=== PATIENT | male | born 1990 | race Caucasian/White ===

== ENCOUNTER 2022-11-08 12:50 | Inpatient (IN) ==
--- NOTE | 2022-11-08 13:29 | Emergency Department Note ---
Abdominal Pain HPI General Chief Complaint: Abdominal Pain Stated Complaint: Colitis Time Seen by Provider: 11/08/22 12:54 Source: patient Mode of arrival: ambulatory Limitations: no limitations History of Present Illness HPI Narrative: Narrative: Patient presents to the ED after being sent over from [facility] due to concerns about a GI bleed. Apparently patient states that he has been having diarrhea x5 days. He states the diarrhea has gotten progressively worse. He states now over the last 3 days he has been having more more blood in his stool as well. He states that he went over the [facility] where CT was performed and this showed that he had colitis. He continued to have blood which is why he went to the [facility]. [facility] spoke to the GI provider who want him sent to the ED for further evaluation. Patient denies fever, chills, nausea, vomiting, hematemesis, abdominal trauma, dysuria, hematuria, urinary frequency, cardiac chest pain, heart palpitation, shortness of breath. He reports that he is having some mild abdominal pain about a 4/5 distal described as a dull ache. Patient denies any other alleviating or aggravating factors. Related Data Home Medications Medication Instructions Recorded Confirmed ciprofloxacin HCl 500 mg tablet 500 mg PO Q12H 11/08/22 11/08/22 Allergies Allergy/AdvReac Type Severity Reaction Status Date / Time No Known Drug Allergies Allergy Verified 11/08/22 11:30 Review of Systems ROS ROS Narrative: Narrative: All systems ED: reviewed and negative except as stated. PFS Narrative Patient History Narrative: Narrative: Medical/Surgical/Family History All Active Problems (Updated 11/08/22 @ 15:09 by Maurice Lynne DO) Colitis (Acute) Acute GI bleeding (Acute) Sore throat (Acute) Upper respiratory infection (Acute) Social History Smoking Status: Never smoker Alcohol Intake Frequency: holiday/special occasion only Substance Use: does not use Exam Narrative Narrative: Narrative: General Limitations: no limitations General appearance: Absent in distress ENT ENT: Present normal oropharynx and mucous membranes moist Neck Neck: Present normal inspection; Absent meningismus Respiratory Respiratory: Present normal lung sounds bilaterally; Absent respiratory distress Cardiovascular Cardiovascular: Present regular rate and normal rhythm Adbominal Abdominal: Present soft and normal bowel sounds; Absent tenderness Rectal Rectal: Present heme (+) stool Extremities Extremities: Present normal inspection and normal capillary refill Back Back: Absent CVA tenderness (R) or CVA tenderness (L) Neurological Neurological: Present oriented X3 and normal gait Psychiatric Psychiatric: Present normal affect and normal mood Skin Skin: Present warm (WNL) and intact Course Course Course Narrative: Patient was evaluated for abdominal pain suspected GI bleed. I received his records from [facility] from a visit that he had on 11/04/2022. I reviewed all labs which show that patient did have leukocytosis at this time with elevated white cell count of 12.4. Other labs were relatively unremarkable to include normal renal function. Patient hemoglobin level stable at that time 14.5. CT of the abdomen pelvis was obtained there and I examined the report which did reveal pancolitis with no obvious perforation or other intra-abdominal abnormalities. Labs were obtained and patient hemoglobin was stable but his white cell count was elevated with leukocytosis. Patient was afebrile with a normal heart rate normal pulse rate so he does not meet sepsis criteria. Lactic acid was within normal limits. pH was within normal limits. Stool sample was obtained and was positive for blood. C. difficile and stool culture still pending. Patient CRP is elevated. Case was discussed with GI specialist, Dr. Menjivar who requested patient be admitted to the hospitalist service with a GI consult. He request that patient be given prednisone 80 mg IV now then 20 mg every 8 hours IV. He request patient be placed on a clear liquid diet. Case was discussed with hospitalist, Dr. Busby, who was agreed to admit the patient. Plan of care was discussed with patient he expressed verbal understanding agreement of plan. Reevaluation(s) Reevaluation #1: Case discussed with hospitalist who has agreed to admit the patient Time: 13:56 Consultations Consultation #1: Case discussed with GI physician, Dr. Menjivar, who request that patient be admitted to the hospitalist service with GI consult. He requested patient be given Solu-Medrol 80 mg IV now in the ED and then 20 mg every 8 hours thereafter. Request that patient also be left on a clear liquid diet. Time: 15:02 Consultation #2: Case discussed with hospitalist Dr. Busby, who was agreed to admit the patient Time: 16:01 Vital Signs Vital signs: Vital Signs Temperature 97.1 F 11/08/22 12:58 Pulse Rate 90 11/08/22 12:58 Respiratory Rate 18 11/08/22 12:58 Blood Pressure 126/85 11/08/22 12:58 Pulse Oximetry (%) 97 11/08/22 12:58 Oxygen Delivery Method Room Air 11/08/22 12:58 Temperature 97.1 F 11/08/22 12:58 Pulse Rate 90 11/08/22 12:58 Respiratory Rate 18 11/08/22 12:58 Blood Pressure 126/85 11/08/22 12:58 Pulse Oximetry (%) 97 11/08/22 12:58 Oxygen Delivery Method Room Air 11/08/22 12:58 MDM MDM Narrative Medical decision making narrative: Narrative: Differential Diagnosis Differential Diagnosis: GI bleed, colitis Medical Records Medical records reviewed: Yes I reviewed the patient's medical records. Lab Data Lab results reviewed: Yes I reviewed the patient's lab results. 11/08/22 13:25 Labs: Lab Results 11/08/22 11/08/22 11/08/22 Range/Units 13:25 13:25 13:30 WBC 15.4 H (4.5-11.0) K/mcL RBC 4.91 (4.63-6.08) M/mcL Hgb 14.2 (13.7-17.5) g/dL Hct 41.9 (40.1-51.0) % POC Hct (41-55) MCV 85.3 (80.0-100.0) fL MCH 28.9 (26.0-34.0) pg MCHC 33.9 (31.0-36.0) g/dL RDW 12.5 (11.5-14.5) % Plt Count 374 (140-440) K/mcL MPV 9.0 (8.8-12.5) fL Immature Gran % (Auto) 4.3 H (0.0-0.5) % Neut % (Auto) 74.0 (38.0-78.0) % Lymph % (Auto) 7.8 L (15.5-49.0) % [place] % (Auto) 8.4 (1.0-12.0) % Eos % (Auto) 4.5 (0.0-7.0) % Baso % (Auto) 1.0 (0.0-2.0) % Lymph # (Auto) 1.20 L (1.50-4.80) K/mcL [place] # (Auto) 1.29 H (0.10-0.90) K/mcL Eos # (Auto) 0.69 (0.00-0.70) K/mcL Baso # (Auto) 0.15 (0.00-0.30) K/mcL Immature Gran # 0.66 H (0.00-0.05) K/mcl Absolute Neutrophils 11.38 H (1.80-8.00) K/mcL ESR 68 H (0-15) mm/hr POC VBG pH 7.38 (7.32-7.42) POC VBG pCO2 at Temp 43.8 (41-51) POC VBG pO2 18 L (25-40) POC VBG HCO3 25.9 (24-28) POC VBG Total CO2 27.0 (25-29) POC Venous O2 Sat 27.0 L (40-70) POC VBG Base Excess 1.0 (-2-2) VBG Lactic Acid 0.9 (0.5-2) POC Sodium (133-145) POC Potassium (3.3-5.1) POC Chloride (96-108) POC Total CO2 (22-30) POC BUN (6-20) POC Creatinine (0.6-1.2) POC Glucose (70-105) POC WB Ioniz Calcium (1.16-1.32) Total Bilirubin 0.3 (0.1-1.0) mg/dL Direct Bilirubin < 0.2 (0-0.3) mg/dL AST 21 (<40) U/L ALT 20 (<40) U/L Alkaline Phosphatase 95 (39-117) U/L Total Protein 6.9 (5.9-8.4) gm/dL Albumin 3.4 (3.2-5.2) gm/dL Globulin 3.5 (2.2-3.7) gm/dL 11/08/22 Range/Units 13:31 WBC (4.5-11.0) K/mcL RBC (4.63-6.08) M/mcL Hgb (13.7-17.5) g/dL Hct (40.1-51.0) % POC Hct 43.0 (41-55) MCV (80.0-100.0) fL MCH (26.0-34.0) pg MCHC (31.0-36.0) g/dL RDW (11.5-14.5) % Plt Count (140-440) K/mcL MPV (8.8-12.5) fL Immature Gran % (Auto) (0.0-0.5) % Neut % (Auto) (38.0-78.0) % Lymph % (Auto) (15.5-49.0) % [place] % (Auto) (1.0-12.0) % Eos % (Auto) (0.0-7.0) % Baso % (Auto) (0.0-2.0) % Lymph # (Auto) (1.50-4.80) K/mcL [place] # (Auto) (0.10-0.90) K/mcL Eos # (Auto) (0.00-0.70) K/mcL Baso # (Auto) (0.00-0.30) K/mcL Immature Gran # (0.00-0.05) K/mcl Absolute Neutrophils (1.80-8.00) K/mcL ESR (0-15) mm/hr POC VBG pH (7.32-7.42) POC VBG pCO2 at Temp (41-51) POC VBG pO2 (25-40) POC VBG HCO3 (24-28) POC VBG Total CO2 (25-29) POC Venous O2 Sat (40-70) POC VBG Base Excess (-2-2) VBG Lactic Acid (0.5-2) POC Sodium 133 (133-145) POC Potassium 3.5 (3.3-5.1) POC Chloride 97 (96-108) POC Total CO2 26.0 (22-30) POC BUN 5 L (6-20) POC Creatinine 1.0 (0.6-1.2) POC Glucose 108 H (70-105) POC WB Ioniz Calcium 0.98 L (1.16-1.32) Total Bilirubin (0.1-1.0) mg/dL Direct Bilirubin (0-0.3) mg/dL AST (<40) U/L ALT (<40) U/L Alkaline Phosphatase (39-117) U/L Total Protein (5.9-8.4) gm/dL Albumin (3.2-5.2) gm/dL Globulin (2.2-3.7) gm/dL Core Measures AMI Core Measures Followed: Yes Discharge Plan Patient/Caregiver Discharge Instructions Pt seen by MONOTYPE CASTER/PA only: No Clinical Impression: Colitis, Acute GI bleeding Patient Disposition: Xfer As Outpt/Obs ([facility]) Condition: Good Follow up with: Joel De La Torre DO [Primary Care Provider] - Prescriptions: No Action ciprofloxacin HCl 500 mg tablet 500 mg PO Q12H
[2022-11-08 13:33] LABS: POC Calcium, Ionized 0.98 (1.16-1.32); POC Potassium 3.5 (3.3-5.1)
[2022-11-08 14:14] LABS: Basophils # (Auto) 0.15 K/mcL (0.00-0.30); Eosinophils # (Auto) 0.69 K/mcL (0.00-0.70); Eosinophils % (Auto) 4.5 % (0.0-7.0); Hematocrit 41.9 % (40.1-51.0); Hemoglobin 14.2 g/dL (13.7-17.5); Lymphocytes % (Auto) 7.8 % (15.5-49.0); Mean Cell Volume 85.3 fL (80.0-100.0); Mean Corpuscular HGB Conc 33.9 g/dL (31.0-36.0); Monocytes # (Auto) 1.29 K/mcL (0.10-0.90); Monocytes % (Auto) 8.4 % (1.0-12.0); Platelet Count 374 K/mcL (140-440); RBC 4.91 M/mcL (4.63-6.08); Red Cell Distribution Width 12.5 % (11.5-14.5); WBC 15.4 K/mcL (4.5-11.0)
[2022-11-08] MEDS ORDERED: methylPREDNISolone SOD SUCC 125 MG/2 ML VIAL IV ONE (15:06)
[2022-11-08 15:15] LABS: Erythrocyte Sedimentation Rate 68 mm/hr (0-15)
[2022-11-08 15:17] LABS: ALT/SGPT 20 U/L (<40); AST/SGOT 21 U/L (<40); Albumin 3.4 gm/dL (3.2-5.2); Alkaline Phosphatase 95 U/L (39-117); Bilirubin,Direct < 0.2 mg/dL (0-0.3); Bilirubin,Total 0.3 mg/dL (0.1-1.0); Globulin 3.5 gm/dL (2.2-3.7)
--- NOTE | 2022-11-08 16:17 | Internal Med History&Physical ---
HPI History of Present Illness Patient information: Note initiated : 11/08/22 at 4:14 pm Service Date, if different from initiated Date: [] Patient: Ronnie Mijares a 31 y/o M admitted on for Colitis. Chief Complaint: [] History of present illness: Mr. Mijares is a 31 year old M For abdominal pain and bright red blood per rectum. Patient states about a week and a half ago he started having abdominal pain especially in the lower quadrants that was severely achy wax and wane. Is also accompanied by diarrhea nonbloody at that time. He went to [facility] urgent care and was given a ciprofloxacin and Lomotil. His symptoms continue to worsen and he went to [facility] on Sunday and got a CT scan which showed severe colitis and was recommended for him to follow-up with GI for colonoscopy. His pain and diarrhea have continued to worsen and he developed nausea vomiting over the weekend. In his bleeding became worse thus came to minor care today discussed case with Dr. Menjivar quested patient to go to the ER and be admitted. Dr. Menjivar feels that this is ulcerative colitis and recommended Solu-Medrol and Dr. Menjivar will perform colonoscopy in the morning. patient does have a leukocytosis on labs. 15,000 and a ESR of 68, CRP of 17 . Patient has a mother and grandmother both with Crohn's disease. I was told C. difficile was negative. Review of Systems: Pertinent positives as above. denies headache/fever/chills/nausea/ vomiting/chest or abdominal pain/cough/dyspnea/diarrhea. Remaining 10 point review of system reviewed negative PHYSICAL EXAM General: Alert, Awake, No acute Distress Eyes/N/T: EOMI, no scleral icterus, PERRL, Head/Neck: neck supple, full ROM, normocephalic atraumatic CV: RRR, No murmurs, normal s1/s2 Pulm: Clear b/l, no wheezing/rhonchi/rales, no respiratory distress Abd: soft, mildly tender Lower Quads, +BS x4 Ext: no clubbing/cyanosis/edema, nontender Neuro: Alert, no focal deficits, moves all extremities, CN 2-12 grossly intact, sensations intact b/l upper/lower Psychiatric: Skin: warm/dry, normal color PFSH PFSH All Active Problems (Updated 11/08/22 @ 15:09 by Maurice Lynne DO) Colitis (Acute) Acute GI bleeding (Acute) Sore throat (Acute) Upper respiratory infection (Acute) Social History smoking status: Never smoker alcohol intake frequency: holiday/special occasion only substance use type: does not use MEDS/ALLERGIES Home Medications and Allergies Home Medications Medication Instructions Recorded Confirmed Type ciprofloxacin HCl 500 mg tablet 500 mg PO Q12H 11/08/22 11/08/22 History Allergies Allergy/AdvReac Type Severity Reaction Status Date / Time No Known Drug Allergies Allergy Verified 11/08/22 11:30 EXAM Constitutional Vitals: Temp Pulse Resp BP Pulse Ox O2 Del Method 97.1 F 90 18 126/85 97 Room Air 11/08/22 12:58 11/08/22 12:58 11/08/22 12:58 11/08/22 12:58 11/08/22 12:58 11/08/22 12:58 DATA Data Completed and Pending Labs: Labs from last 24 hours 11/08/22 11/08/22 11/08/22 13:31 13:30 13:25 WBC RBC Hgb Hct POC Hct 43.0 MCV MCH MCHC RDW Plt Count MPV Immature Gran % (Auto) Neut % (Auto) Lymph % (Auto) [place] % (Auto) Eos % (Auto) Baso % (Auto) Lymph # (Auto) [place] # (Auto) Eos # (Auto) Baso # (Auto) Immature Gran # Absolute Neutrophils ESR POC VBG pH 7.38 POC VBG pCO2 at Temp 43.8 POC VBG pO2 18 L POC VBG HCO3 25.9 POC VBG Total CO2 27.0 POC Venous O2 Sat 27.0 L POC VBG Base Excess 1.0 VBG Lactic Acid 0.9 POC Sodium 133 POC Potassium 3.5 POC Chloride 97 POC Total CO2 26.0 POC BUN 5 L POC Creatinine 1.0 POC Glucose 108 H POC WB Ioniz Calcium 0.98 L Total Bilirubin 0.3 Direct Bilirubin < 0.2 AST 21 ALT 20 Alkaline Phosphatase 95 Total Protein 6.9 Albumin 3.4 Globulin 3.5 11/08/22 13:25 WBC 15.4 H RBC 4.91 Hgb 14.2 Hct 41.9 POC Hct MCV 85.3 MCH 28.9 MCHC 33.9 RDW 12.5 Plt Count 374 MPV 9.0 Immature Gran % (Auto) 4.3 H Neut % (Auto) 74.0 Lymph % (Auto) 7.8 L [place] % (Auto) 8.4 Eos % (Auto) 4.5 Baso % (Auto) 1.0 Lymph # (Auto) 1.20 L [place] # (Auto) 1.29 H Eos # (Auto) 0.69 Baso # (Auto) 0.15 Immature Gran # 0.66 H Absolute Neutrophils 11.38 H ESR 68 H POC VBG pH POC VBG pCO2 at Temp POC VBG pO2 POC VBG HCO3 POC VBG Total CO2 POC Venous O2 Sat POC VBG Base Excess VBG Lactic Acid POC Sodium POC Potassium POC Chloride POC Total CO2 POC BUN POC Creatinine POC Glucose POC WB Ioniz Calcium Total Bilirubin Direct Bilirubin AST ALT Alkaline Phosphatase Total Protein Albumin Globulin A/P Narrative A/P Narrative: A: *Abdominal pain w/bloody diarrhea: 2/2 likely acute severe IBD -CT w/pancolitis -family h/o crohns -symptoms continued to worsen while on abx -c. diff neg *Suspected inflammatory bowel disease (Crohn's>UC) *Leukocytosis: 2/2 above *elevated ESR/CRP: 2/2 above * P: -Dr. Menjivar for colonoscopy, further recs pending endosocpy -Per Dr. Menjivar continue solumedrol -hold further abx for now unless develops fever/tachy, but will defer to GI -pain control -Follow inflammatory markers -Stool studies -ASCA and pANCA -ppx: SCD Time Spent With Patient Time: Total time spent is greater than 50% in coordination of care (as documented) at patient's floor/unit and/or counseling patient: Initial: Total time with patient: 75 - 90 minutes Attestation: including time spent reviewing UC and serologies/diagnostic w/u and treatment.
[2022-11-08] MEDS ORDERED: POTASSIUM CHLORIDE 40 MEQ in DEXTROSE 5% IN WATER 500 ML IV PRN (19:26)
[2022-11-08] MEDS ORDERED: morphine 4 MG/ML VIAL IV PRN (19:26)
[2022-11-08] MEDS ORDERED: ACETAMINOPHEN 325 MG TABLET PO PRN (19:26)
[2022-11-08] MEDS ORDERED: 0.9 % SODIUM CHLORIDE 1,000 ML IV ONE (19:26)
[2022-11-08] MEDS ORDERED: POTASSIUM CHLORIDE 20 MEQ TABLET PO PRN ×2 (19:26)
[2022-11-08] MEDS ORDERED: HYDROcodone/APAP 5/325MG TABLET PO PRN (19:26)
[2022-11-08] MEDS ORDERED: MAGNESIUM SULFATE 2 GM/50 ML BAG IV PRN (19:26)
[2022-11-08] MEDS: 0.9 % SODIUM CHLORIDE 10 ML SYRINGE IV SCH (21:54)
[2022-11-08] MEDS: ONDANSETRON 4 MG/2 ML VIAL IV PRN (21:54)
[2022-11-08] MEDS: methylPREDNISolone SOD SUCC 40 MG/ML VIAL IV SCH (22:58)
[2022-11-09] MEDS: ONDANSETRON 4 MG/2 ML VIAL IV PRN ×2 (05:31→11:07)
[2022-11-09] MEDS: methylPREDNISolone SOD SUCC 40 MG/ML VIAL IV SCH ×3 (05:31→23:10)
[2022-11-09] MEDS: 0.9 % SODIUM CHLORIDE 10 ML SYRINGE IV SCH ×3 (05:32→23:00)
--- NOTE | 2022-11-09 05:52 | XRay Report ---
INDICATION: eval for TB prior Remicade start pr Dr. Quiroz TECHNIQUE: AP portable upright chest x-ray COMPARISON: None FINDINGS: Lungs:Lungs are negative. No focal pulmonary parenchymal infiltrate or mass Heart, vascular:No significant cardiomegaly. Pulmonary vascularity is normal. No pulmonary edema or pulmonary congestion Mediastinum, blossom:No mediastinal widening. No hilar mass Pleura:No pleural fluid. No pleural-based mass or calcification Skeletal:Negative. IMPRESSION: Negative AP chest x-ray Interpreted and Authenticated by: Pravin Payne 11/09/22
[2022-11-09 06:16] LABS: Basophils # (Auto) 0.09 K/mcL (0.00-0.30); Basophils % (Auto) 0.7 % (0.0-2.0); Eosinophils # (Auto) 0 K/mcL (0.00-0.70); Eosinophils % (Auto) 0 % (0.0-7.0); Hematocrit 38.3 % (40.1-51.0); Hemoglobin 13.1 g/dL (13.7-17.5); Lymphocytes # (Auto) 0.97 K/mcL (1.50-4.80); Lymphocytes % (Auto) 7.2 % (15.5-49.0); Mean Cell Volume 85.3 fL (80.0-100.0); Mean Corpuscular HGB Conc 34.2 g/dL (31.0-36.0); Mean Platelet Volume 9.2 fL (8.8-12.5); Monocytes # (Auto) 0.38 K/mcL (0.10-0.90); Monocytes % (Auto) 2.8 % (1.0-12.0); Neutrophils % (Auto) 84.2 % (38.0-78.0); Platelet Count 394 K/mcL (140-440); RBC 4.49 M/mcL (4.63-6.08); Red Cell Distribution Width 12.5 % (11.5-14.5); WBC 13.4 K/mcL (4.5-11.0)
[2022-11-09] MEDS ORDERED: PEG 3350/NA SULF,BICARB,CL/KCL 4,000 ML ORAL.SOL PO ONE (06:30)
[2022-11-09 06:51] LABS: ALT/SGPT 23 U/L (<40); AST/SGOT 21 U/L (<40); Albumin 3.2 gm/dL (3.2-5.2); Alkaline Phosphatase 90 U/L (39-117); Bilirubin,Direct < 0.2 mg/dL (0-0.3); Bilirubin,Total 0.2 mg/dL (0.1-1.0); Blood Urea Nitrogen 7 mg/dL (6-20); Calcium 8.3 mg/dL (8.6-10.4); Carbon Dioxide 24 mmol/L (22-30); Chloride 97 mmol/L (96-108); Globulin 3.2 gm/dL (2.2-3.7); Glomerular Filtration Rate 134; Glucose 131 mg/dL (70-105); Lactate Dehydrogenase 144 U/L (135-225); Phosphorous 3.4 mg/dL (2.5-4.5); Triglycerides 106 mg/dL (<150); Uric Acid 10.3 mg/dL (2.5-8.0)
--- NOTE | 2022-11-09 08:23 | Internal Med Progress Note ---
SUBJECTIVE Subjective Patient information: Note initiated : 11/09/22 at 8:20 am Service Date, if different from initiated Date: [] Patient: Ronnie Mijares 31 y/o M admitted on 11/08/22 for Colitis-Abdominal Pain,Bloody Diarrhea. Chief Complaint: [] Interval history: History of present illness: Mr. Mijares is a 31 year old M For abdominal pain and bright red blood per rectum. Patient states about a week and a half ago he started having abdominal pain especially in the lower quadrants that was severely achy wax and wane. Is also accompanied by diarrhea nonbloody at that time. He went to [facility] urgent care and was given a ciprofloxacin and Lomotil. His symptoms continue to worsen and he went to [facility] on Sunday and got a CT scan which showed severe colitis and was recommended for him to follow-up with GI for colonoscopy. His pain and diarrhea have continued to worsen and he developed nausea vomiting over the weekend. In his bleeding became worse thus came to minor care today discussed case with Dr. Menjivar quested patient to go to the ER and be admitted. Dr. Menjivar feels that this is ulcerative colitis and recommended Solu-Medrol and Dr. Menjivar will perform colonoscopy in the morning. patient does have a leukocytosis on labs. 15,000 and a ESR of 68, CRP of 17 . Patient has a mother and grandmother both with Crohn's disease. I was told C. difficile was negative. 11/09 No overnight event or new complaints. Patient notes some blood in his stool again some dark as well as bright red blood. Leukocytosis improving on own. Abdominal pain present but a little better. Mild hyponatremia. Elevated uric acid we will continue IV fluids Review of Systems: Pertinent positives as above. denies headache/f ever/chills/nausea/vomiting/chest or abdominal pain/cough/dyspnea/diarrhea. PHYSICAL EXAM General: Alert, Awake, No acute Distress Eyes/N/T: EOMI, no scleral icterus, PERRL, Head/Neck: neck supple, full ROM, CV: RRR, No murmurs, Pulm: Clear b/l, no wheezing/rhonchi/rales, no respiratory distress Abd: soft, mildly tender [place], +BS x4 Ext: no clubbing/cyanosis/edema, nontender Neuro: Alert, no focal deficits, moves all extremities, sensations intact b/l upper/lower Psychiatric: Skin: warm/dry, normal color Constitutional Vitals: Vital Signs Temp Pulse Resp BP Pulse Ox O2 Del Method 96.5 F L 87 18 123/80 98 Room Air 11/09/22 04:09 11/09/22 06:53 11/09/22 06:53 11/09/22 06:53 11/09/22 06:53 11/09/22 06:53 Period Temp Pulse Resp BP Sys/Noel Pulse Ox O2 Del Method O2 Flow Rate Last 24 Hr 96.5 F-97.5 F 84-104 14-18 110-135/79-93 96-100 Room Air-Room Air Intake and Output 11/08/22 11/09/22 11/09/22 19:59 03:59 11:59 Intake Total 240 500 Balance 240 500 Weight 88.541 kg Intake & Output: Intake & Output 11/08/22 11/09/22 11/09/22 19:59 03:59 11:59 Intake Total 240 500 Balance 240 500 Weight 88.541 kg Intake: Oral 240 500 Other: # Voids 1 1 # Bowel Movements 3 1 OBJ DATA Labs 11/09/22 05:03 11/09/22 05:03 Labs: Abnormal Lab Results 11/09/22 11/09/22 11/08/22 05:03 05:03 13:31 WBC 13.4 H RBC 4.49 L Hgb 13.1 L Hct 38.3 L Immature Gran % (Auto) 5.1 H Neut % (Auto) 84.2 H Lymph % (Auto) 7.2 L Lymph # (Auto) 0.97 L [place] # (Auto) Immature Gran # 0.69 H Absolute Neutrophils 11.29 H ESR POC VBG pO2 POC Venous O2 Sat Sodium 132 L POC BUN 5 L Creatinine 0.6 L Glucose 131 H POC Glucose 108 H Uric Acid 10.3 H Calcium 8.3 L POC WB Ioniz Calcium 0.98 L 11/08/22 11/08/22 13:30 13:25 WBC 15.4 H RBC Hgb Hct Immature Gran % (Auto) 4.3 H Neut % (Auto) Lymph % (Auto) 7.8 L Lymph # (Auto) 1.20 L [place] # (Auto) 1.29 H Immature Gran # 0.66 H Absolute Neutrophils 11.38 H ESR 68 H POC VBG pO2 18 L POC Venous O2 Sat 27.0 L Sodium POC BUN Creatinine Glucose POC Glucose Uric Acid Calcium POC WB Ioniz Calcium Meds: Medications Acetaminophen (Acetaminophen 325 Mg Tablet) 650 mg PO Q6HP PRN; Protocol PRN Reason: Per Pain Protocol/Fever > 101 Hydrocodone Bitart/Acetaminophen (Hydrocodone/Apap 5/325mg Tablet) 1 tab PO Q4HP PRN PRN Reason: PAIN LEVEL 3-6 Potassium Chloride 40 meq/ (Dextrose) 520 mls @ 130 mls/hr IV UD PRN PRN Reason: Potassium < 3 Magnesium Sulfate (Magnesium Sulfate) 2 gm in 50 mls @ 50 mls/hr IV UD PRN PRN Reason: Magnesium </= 1.6 Methylprednisolone Sodium Succinate (Methylprednisolone Sod Succ 40 Mg/Ml Vial) 20 mg IV Q8 [facility] Last Admin: 11/09/22 05:31 Dose: 20 mg Morphine Sulfate (Morphine 4 Mg/Ml Vial) 0 mg IV Q3HP PRN PRN Reason: Pain Ondansetron HCl (Ondansetron 4 Mg/2 Ml Vial) 4 mg IV Q4HP PRN PRN Reason: Nausea And Vomiting Last Admin: 11/09/22 05:31 Dose: 4 mg Potassium Chloride (Potassium Chloride 20 Meq Tablet) 40 meq PO UD PRN PRN Reason: Potssium is 3-3.5 Potassium Chloride (Potassium Chloride 20 Meq Tablet) 40 meq PO UD PRN PRN Reason: Potassium < 3 Sodium Chloride (0.9 % Sodium Chloride 10 Ml Syringe) 10 ml IV Q8 [facility] Last Admin: 11/09/22 05:32 Dose: Not Given A/P Narrative A/P Narrative: A: *Abdominal pain w/bloody diarrhea: 2/2 likely acute severe IBD -CT w/pancolitis -family h/o crohns -symptoms continued to worsen while on abx -c. diff neg *Suspected inflammatory bowel disease (Crohn's>UC) - *Leukocytosis: 2/2 above, improving *elevated ESR/CRP: 2/2 above *Hyponatremia: P: -Dr. Menjivar for colonoscopy, further recs pending endosocpy -Per Dr. Menjivar continue solumedrol -ivf -hold further abx for now unless develops fever/tachy, but will defer to GI -pain control -Follow inflammatory markers -Stool studies -ASCA and pANCA -NS IVF -ppx: SCD Time Spent With Patient Time: Total time spent is greater than 50% in coordination of care (as documented) at patient's floor/unit and/or counseling patient: Subsequent: Total time with patient: 50 - 65 Minutes QUALITY VTE Deep Vein Thrombosis/Pulmonary Embolism Present on Admission: No
[2022-11-09] MEDS ORDERED: 0.9 % SODIUM CHLORIDE 1,000 ML IV SCH (08:30)
[2022-11-09] MEDS ORDERED: PROPOFOL 200 MG/20 ML VIAL IV SCH (10:45)
[2022-11-09] MEDS ORDERED: MIDAZOLAM 2 MG/2 ML VIAL IV SCH (10:45)
--- NOTE | 2022-11-09 16:04 | Discharge Summary ---
Discharge Provider Provider IMPORTANT FOLLOW-UP INFORMATION FOR PCP: Patient information: Note initiated : 11/09/22 at 4:02 pm Service Date, if different from initiated Date: [] Patient: Ronnie Mijares 31 y/o M admitted on 11/08/22 for Colitis-Abdominal Pain,Bloody Diarrhea. Chief Complaint: [] Date of admission: 11/08/22 19:18 Discharge date: 11/10/22 Primary care physician: Joel De La Torre DO Consults: 11/08/22 15:09 Consult to Physician [CONS] Stat Comment: Consulting Provider: Richard Quiroz Reason For Exam: Physician to Consult 11/08/22 15:10 Consult to Physician [CONS] Stat Comment: Consulting Provider: Jeffrey Busby Reason For Exam: Physician to Consult COURSE Hospital Course Hospital course: History of present illness: Mr. Mijares is a 31 year old M For abdominal pain and bright red blood per rectum. Patient states about a week and a half ago he started having abdominal pain especially in the lower quadrants that was severely achy wax and wane. Is also accompanied by diarrhea nonbloody at that time. He went to [facility] urgent care and was given a ciprofloxacin and Lomotil. His symptoms continue to worsen and he went to [facility] on Sunday and got a CT scan which showed severe colitis and was recommended for him to follow-up with GI for colonoscopy. His pain and diarrhea have continued to worsen and he developed nausea vomiting over the weekend. In his bleeding became worse thus came to minor care today discussed case with Dr. Menjivar quested patient to go to the ER and be admitted. Dr. Menjivar feels that this is ulcerative colitis and recommended Solu-Medrol and Dr. Menjivar will perform colonoscopy in the morning. patient does have a leukocytosis on labs. 15,000 and a ESR of 68, CRP of 17 . Patient has a mother and grandmother both with Crohn's disease. I was told C. difficile was negative. 11/09 No overnight event or new complaints. Patient notes some blood in his stool again some dark as well as bright red blood. Leukocytosis improving on own. Abdominal pain present but a little better. Mild hyponatremia. Elevated uric acid we will continue IV fluids 11/10 Patient doing well. Received Remicade last night. Abdominal pain present but improving. No bloody stools overnight. Leukocytosis from IV corticosteroids. Sodium improved. Volume depletion improved. A: *Abdominal pain w/bloody diarrhea: 2/2 likely acute severe IBD -CT w/pancolitis -family h/o crohns -symptoms continued to worsen while on abx -c. diff neg *Suspected inflammatory bowel disease (Crohn's>UC) - *Leukocytosis: 2/2 above, improving *elevated ESR/CRP: 2/2 above *Hyponatremia: P: -Dr. Menjivar for colonoscopy, further recs pending endosocpy -corticosteroids -pending ASCA and pANCA Discharge diagnosis: Abdominal pain and bloody diarrhea likely inflammatory bowel disease Time Spent with Patient Time attestation: Total time spent providing and/or coordinating discharge services: Time spent: Greater than 30 minutes EXAM Constitutional Vitals: Temp Pulse Resp BP Pulse Ox O2 Del Method 97.3 F 81 18 123/79 99 Room Air 11/09/22 12:00 11/09/22 12:00 11/09/22 12:00 11/09/22 12:00 11/09/22 12:00 11/09/22 12:00 Discharge Data Data Completed and Pending Labs on day of discharge: Labs from last 24 hours 11/09/22 11/09/22 11/08/22 05:03 05:03 13:25 WBC 13.4 H RBC 4.49 L Hgb 13.1 L Hct 38.3 L MCV 85.3 MCH 29.2 MCHC 34.2 RDW 12.5 Plt Count 394 MPV 9.2 Immature Gran % (Auto) 5.1 H Neut % (Auto) 84.2 H Lymph % (Auto) 7.2 L Roberts % (Auto) 2.8 Eos % (Auto) 0 Baso % (Auto) 0.7 Lymph # (Auto) 0.97 L Roberts # (Auto) 0.38 Eos # (Auto) 0 Baso # (Auto) 0.09 Immature Gran # 0.69 H Absolute Neutrophils 11.29 H Sodium 132 L Potassium 3.9 Chloride 97 Carbon Dioxide 24 Anion Gap 11.0 BUN 7 Creatinine 0.6 L GFR Calculation 134 Glucose 131 H Uric Acid 10.3 H Calcium 8.3 L Phosphorus 3.4 Magnesium 2.4 Total Bilirubin 0.2 Direct Bilirubin < 0.2 GGT 39 AST 21 ALT 23 Alkaline Phosphatase 90 Lactate Dehydrogenase 144 Total Protein 6.4 Albumin 3.2 Globulin 3.2 Albumin/Globulin Ratio 1.0 Triglycerides 106 Miscellaneous Test Pending Discharge Plan Patient/Caregiver Discharge Instructions Activity: increase activity as tolerated Diet: Regular Diet Instructions: Prednisone (By mouth), Ulcerative Colitis (DC), Colonoscopy (DC) Activity Restrictions/Additional Instructions: Increase activity as tolerated. Resume regular diet as tolerated. Contact your physician for any sustained fever of 100.5, blood, increase in abdominal pain, any other pain not relieved by rest or medication, or any other questions or concerns you might have. This discharge packet is provided to you to help keep you informed about your care. We want to ensure you get everything you need when you go home. You will also be receiving a call from us in a few days to follow up with you and see how you are doing since your discharge. This gives us a chance to listen to any concerns you maybe experiencing since you were discharged or any additional needs you may have, as well as providing us feedback on your care experience. We strive to always provide excellent care and thank you for your feedback and for choosing [facility]. Prescriptions: New prednisone 10 mg tablet 40 mg PO QDAY Qty: 1 0RF Rx Instructions: take 40mg daily x7 days then decrease to 30mg daily x7 days then continue taper per Lisa Otto and Dr. Quiroz. Discontinued ciprofloxacin HCl 500 mg tablet 500 mg PO Q12H diphenoxylate-atropine 0.025 mg PO TID PRN (Reason: diarrhea) Follow Up Plan Follow up with: Lisa Otto ARNP [Nurse Practitioner] - 11/13/22 11:00 am (Please arrive for your appointment 15 minutes early.) Joel De La Torre DO [Primary Care Provider] - (You will be contacted by your Physician's office to schedule your follow up appointment. If you have not heard from them by Sunday, please contact them to schedule to be seen within 3-10 days.) Patient Disposition: Home, Self-Care Prognosis: Good Overall status at discharge: patient is progressing back to baseline Discharge Orders: Discharge Order (Routine); Ordered 11/10/22 Ordered By: Jeffrey Busby [facility]TE Deep Vein Thrombosis/Pulmonary Embolism Present on Admission: No
[2022-11-09] MEDS ORDERED: SODIUM CHLORIDE 0.9% IV SCH (16:45)
[2022-11-09] MEDS ORDERED: INFLIXIMAB IV SCH (16:45)
[2022-11-10] MEDS: methylPREDNISolone SOD SUCC 40 MG/ML VIAL IV SCH ×3 (06:05→21:05)
[2022-11-10] MEDS: 0.9 % SODIUM CHLORIDE 10 ML SYRINGE IV SCH ×3 (06:05→21:05)
[2022-11-10 07:03] LABS: Basophils # (Auto) 0.01 K/mcL (0.00-0.30); Basophils % (Auto) 0.1 % (0.0-2.0); Eosinophils # (Auto) 0 K/mcL (0.00-0.70); Eosinophils % (Auto) 0 % (0.0-7.0); Hematocrit 38.5 % (40.1-51.0); Hemoglobin 12.8 g/dL (13.7-17.5); Lymphocytes # (Auto) 1.17 K/mcL (1.50-4.80); Lymphocytes % (Auto) 8.1 % (15.5-49.0); Mean Cell Volume 86.7 fL (80.0-100.0); Mean Corpuscular HGB Conc 33.2 g/dL (31.0-36.0); Mean Platelet Volume 9.3 fL (8.8-12.5); Monocytes # (Auto) 0.75 K/mcL (0.10-0.90); Monocytes % (Auto) 5.2 % (1.0-12.0); Platelet Count 399 K/mcL (140-440); RBC 4.44 M/mcL (4.63-6.08); Red Cell Distribution Width 12.4 % (11.5-14.5); WBC 14.5 K/mcL (4.5-11.0)
[2022-11-10] MEDS: ONDANSETRON 4 MG/2 ML VIAL IV PRN (07:11)
--- NOTE | 2022-11-10 07:35 | Internal Med Progress Note ---
SUBJECTIVE Subjective Patient information: Note initiated : 11/10/22 at 7:33 am Service Date, if different from initiated Date: [] Patient: Ronnie Mijares a 31 y/o M admitted on 11/08/22 for Colitis-Abdominal Pain,Bloody Diarrhea. Chief Complaint: [] Interval history: History of present illness: Mr. Mijares is a 31 year old M For abdominal pain and bright red blood per rectum. Patient states about a week and a half ago he started having abdominal pain especially in the lower quadrants that was severely achy wax and wane. Is also accompanied by diarrhea nonbloody at that time. He went to [facility] urgent care and was given a ciprofloxacin and Lomotil. His symptoms continue to worsen and he went to [facility] on Sunday and got a CT scan which showed severe colitis and was recommended for him to follow-up with GI for colonoscopy. His pain and diarrhea have continued to worsen and he developed nausea vomiting over the weekend. In his bleeding became worse thus came to minor care today discussed case with Dr. Menjivar quested patient to go to the ER and be admitted. Dr. Menjivar feels that this is ulcerative colitis and recommended Solu-Medrol and Dr. Menjivar will perform colonoscopy in the morning. patient does have a leukocytosis on labs. 15,000 and a ESR of 68, CRP of 17 . Patient has a mother and grandmother both with Crohn's disease. I was told C. difficile was negative. 11/09 No overnight event or new complaints. Patient notes some blood in his stool again some dark as well as bright red blood. Leukocytosis improving on own. Abdominal pain present but a little better. Mild hyponatremia. Elevated uric acid we will continue IV fluids 11/10 Patient doing well. Received Remicade last night. Abdominal pain present but improving. No bloody stools overnight. Leukocytosis from IV corticosteroids. Sodium improved. Volume depletion improved. Review of Systems: Pertinent positives as above. denies h eadache/fever/chills/nausea/vomiting/chest or abdominal pain/cough/dyspnea/diarrhea. PHYSICAL EXAM General: Alert, Awake, No acute Distress Eyes/N/T: EOMI, no scleral icterus, PERRL, Head/Neck: neck supple, full ROM, CV: RRR, No murmurs, Pulm: Clear b/l, no wheezing/rhonchi/rales, no respiratory distress Abd: soft, mildly tender Lower Quads, +BS x4 Ext: no clubbing/cyanosis/edema, nontender Neuro: Alert, no focal deficits, moves all extremities, sensations intact b/l upper/lower Psychiatric: Skin: warm/dry, normal color Constitutional Vitals: Vital Signs Temp Pulse Resp BP Pulse Ox O2 Del Method 97.2 F 69 16 114/76 94 Room Air 11/10/22 07:15 11/10/22 07:15 11/10/22 07:15 11/10/22 07:15 11/10/22 07:15 11/10/22 07:15 Period Temp Pulse Resp BP Sys/Noel Pulse Ox O2 Del Method O2 Flow Rate Last 24 Hr 97.2 F-97.8 F 69-98 16-18 100-131/69-84 91-100 Room Air-Room Air Intake and Output 11/09/22 11/10/22 11/10/22 19:59 03:59 11:59 Intake Total 1250 640 Output Total 800 500 Balance 1250 -160 -500 Weight 89.443 kg Intake & Output: Intake & Output 11/09/22 11/10/22 11/10/22 19:59 03:59 11:59 Intake Total 1250 640 Output Total 800 500 Balance 1250 -160 -500 Weight 89.443 kg Intake: IV 1250 Sodium Chloride 0.9% 1,000 ml @ 1000 100 mls/hr IV .Q10H REGLA Rx#: [id number] Remicade 500 mg In Sodium 250 Chloride 0.9% 250 ml @ 125 mls/ hr IV ONCE REGLA Rx#:[id number] Oral 640 Output: Void Amount 800 500 Other: Feeding Ability Independent Urine Appearance Clear Clear Urine Color Yellow Yellow Yellow Urine Odor Normal Normal # Voids 3 OBJ DATA Labs 11/10/22 05:04 11/10/22 05:04 Labs: Abnormal Lab Results 11/10/22 11/09/22 11/09/22 05:04 05:03 05:03 WBC 14.5 H 13.4 H RBC 4.44 L 4.49 L Hgb 12.8 L 13.1 L Hct 38.5 L 38.3 L Immature Gran % (Auto) 8.6 H 5.1 H Neut % (Auto) 84.2 H Lymph % (Auto) 8.1 L 7.2 L Lymph # (Auto) 1.17 L 0.97 L Davie # (Auto) Immature Gran # 1.25 H 0.69 H Absolute Neutrophils 11.34 H 11.29 H ESR POC VBG pO2 POC Venous O2 Sat Sodium 132 L POC BUN Creatinine 0.6 L Glucose 131 H POC Glucose Uric Acid 10.3 H Calcium 8.3 L POC WB Ioniz Calcium 11/08/22 11/08/22 11/08/22 13:31 13:30 13:25 WBC 15.4 H RBC Hgb Hct Immature Gran % (Auto) 4.3 H Neut % (Auto) Lymph % (Auto) 7.8 L Lymph # (Auto) 1.20 L Davie # (Auto) 1.29 H Immature Gran # 0.66 H Absolute Neutrophils 11.38 H ESR 68 H POC VBG pO2 18 L POC Venous O2 Sat 27.0 L Sodium POC BUN 5 L Creatinine Glucose POC Glucose 108 H Uric Acid Calcium POC WB Ioniz Calcium 0.98 L Meds: Medications Acetaminophen (Acetaminophen 325 Mg Tablet) 650 mg PO Q6HP PRN; Protocol PRN Reason: Per Pain Protocol/Fever > 101 Hydrocodone Bitart/Acetaminophen (Hydrocodone/Apap 5/325mg Tablet) 1 tab PO Q4HP PRN PRN Reason: PAIN LEVEL 3-6 Potassium Chloride 40 meq/ (Dextrose) 520 mls @ 130 mls/hr IV UD PRN PRN Reason: Potassium < 3 Magnesium Sulfate (Magnesium Sulfate) 2 gm in 50 mls @ 50 mls/hr IV UD PRN PRN Reason: Magnesium </= 1.6 Methylprednisolone Sodium Succinate (Methylprednisolone Sod Succ 40 Mg/Ml Vial) 20 mg IV Q8 ERGLA Last Admin: 11/10/22 06:05 Dose: 20 mg Morphine Sulfate (Morphine 4 Mg/Ml Vial) 0 mg IV Q3HP PRN PRN Reason: Pain Ondansetron HCl (Ondansetron 4 Mg/2 Ml Vial) 4 mg IV Q4HP PRN PRN Reason: Nausea And Vomiting Last Admin: 11/10/22 07:11 Dose: 4 mg Potassium Chloride (Potassium Chloride 20 Meq Tablet) 40 meq PO UD PRN PRN Reason: Potssium is 3-3.5 Potassium Chloride (Potassium Chloride 20 Meq Tablet) 40 meq PO UD PRN PRN Reason: Potassium < 3 Sodium Chloride (0.9 % Sodium Chloride 10 Ml Syringe) 10 ml IV Q8 REGLA Last Admin: 11/10/22 06:05 Dose: 10 ml A/P Narrative A/P Narrative: A: *Abdominal pain w/bloody diarrhea: 2/2 likely acute severe IBD -CT w/pancolitis, Colonoscopy with pancolitis -family h/o crohns -symptoms continued to worsen while on abx -c. diff neg *Suspected inflammatory bowel disease (Crohn's>UC) - *Leukocytosis: 2/2 above, improving *elevated ESR/CRP: 2/2 above *Hyponatremia: P: -Dr. Menjivar for colonoscopy, further recs pending endosocpy -Per Dr. Menjivar, may discharge 24 hrs after Remicade, Prednisone taper starting at 40mg, f/u in office with Tung Otto -hold further abx for now unless develops fever/tachy -pain control -Follow inflammatory markers -Stool studies -ASCA and pANCA -ppx: SCD Time Spent With Patient Time: Total time spent is greater than 50% in coordination of care (as documented) at patient's floor/unit and/or counseling patient: Subsequent: Total time with patient: 35 - 49 minutes QUALITY VTE Deep Vein Thrombosis/Pulmonary Embolism Present on Admission: No
[2022-11-10 07:53] LABS: ALT/SGPT 25 U/L (<40); AST/SGOT 19 U/L (<40); Albumin 3.2 gm/dL (3.2-5.2); Alkaline Phosphatase 81 U/L (39-117); Bilirubin,Direct < 0.2 mg/dL (0-0.3); Bilirubin,Total 0.2 mg/dL (0.1-1.0); Blood Urea Nitrogen 12 mg/dL (6-20); Calcium 8.6 mg/dL (8.6-10.4); Carbon Dioxide 28 mmol/L (22-30); Chloride 101 mmol/L (96-108); Globulin 3.3 gm/dL (2.2-3.7); Glomerular Filtration Rate 119; Glucose 131 mg/dL (70-105); Lactate Dehydrogenase 154 U/L (135-225); Phosphorous 4.6 mg/dL (2.5-4.5); Triglycerides 138 mg/dL (<150); Uric Acid 7.8 mg/dL (2.5-8.0)
[2022-11-10 09:22] LABS: Hepatitis B Surface Antigen Negative (Negative); Hepatitis C Virus Antibody Non-Reactive (Non-Reactive)
--- NOTE | 2022-11-10 11:07 | Colonoscopy Procedure Note ---
Colonoscopy Procedure Notes Procedure Information Patient information: Note initiated : 11/10/22 at 11:03 am Patient: Ronnie Mijares 31 y/o M admitted on 11/08/22 for Colitis-Abdominal Pain,Bloody Diarrhea. Date of Procedure: 11/09/22 Pre-op diagnosis general: Diarrhea. Query Crohn's vs ulcerative colitis. Post-op diagnosis: Indeterminate colitis. Procedure: Colonoscopy with Bx Procedure narrative: The procedure, alternatives and risks were discussed with the patient and the patient's questions were answered. With endoscopist-administered intravenous sedation, the Olympus colonoscope was introduced into the rectum and advanced to the cecum. Ileocecal valve was identified, intubated, and 40 centimeters of the terminal ileum were examined and appeared normal. Severe pancolitis was seen. Biopsies were taken throughout. There were not deep ulcerations and the rectum appeared slightly less inflamed that the rest of the colon, so the appearance favors Crohn's disease. Anesthesia: conscious sedation Findings: Indeterminate colitis. Recommend anti TNF therapy. Complications: none Surgeon: Richard Quiroz Estimated blood loss: 0 Specimens Removed/Pathology: other Condition: stable Disposition: floor Assessment: Indeterminate colitis.
== END 2022-11-10 21:13 | disposition home or self-care (01) | DRG 392 ==
LOC: ED 12:50 → MEDSUR 19:18
PROVIDERS: ADMIT Internal Medicine; ATTEND Internal Medicine